=== PATIENT | female | born 1945 | race Caucasian/White ===

== ENCOUNTER 2017-07-21 12:53 | Observation (INO) | payer OTHER, MEDICARE ==
[~2017-07-21] VITALS: Ht 167.6 cm; Wt 77.9 kg
[~2017-07-21 12:53] MED LIST: AMLODIPINE BESY10 MG PO; ASPIR-LOW81 MG PO; B-121000 MC2 PO; DILTIA XT240 MG PO; FLONASE16 G1 BOTH NARES; GLUCOPHAGE500 MG PO; HYDROCHLOROTHIAZIDE; LISINOPRIL; LOSARTAN POTAS100 MG PO; MULTI-DAY VITA1 EACH PO; SIMVASTATIN; SIMVASTATIN40 MG PO; WATER PILL; XANAX0.5 MG PO; ZOLOFT; ZOLOFT50 MG PO
[2017-07-21 13:45] LABS: HEMATOCRIT 37.8 % (36.0-46.0); HEMOGLOBIN 13.1 G/DL (11.9-15.5); MCH 30.7 PG (29.0-34.0); MCHC 34.7 G/DL (30.0-36.0); MCV 88.5 FL (83-99); PLATELET COUNT 249 K/uL (156-360); RBC DIS.WIDTH-CV 12.6 % (11.8-14.6); RBC DIS.WIDTH-SD 40.4 % (39-53); RED BLOOD COUNT 4.27 M/uL (3.80-5.20); WHITE BLOOD COUNT 13.9 K/uL (4.1-10.2)
[2017-07-21 13:51] LABS: APPEARANCE CLEAR ((CLEAR)); BILIRUBIN NEGATIVE; BLOOD NEGATIVE; COLOR STRAW ((YELLOW)); GLUCOSE (STRIP) >=500; KETONES NEGATIVE; LEUKOCYTES TRACE; NITRITE NEGATIVE; PROTEIN (STRIP) NEGATIVE; SPECIFIC GRAVITY 1.008 (1.000-1.030); UROBILINOGEN 0.2 MG/DL (0.2-1.0)
[2017-07-21 13:52] LABS: BACTERIA NONE SEEN /HPF; EPITHELIAL CELLS RARE /HPF; MUCUS TRACE /LPF; RED BLOOD CELLS 0-5 /HPF (0-5); WHITE BLOOD CELLS 0-5 /HPF (0-5)
[2017-07-21 13:53] LABS: CHLORIDE 101 mEq/L (99-109); POTASSIUM 4.1 mEq/L (3.7-5.4); SODIUM 137 mEq/L (136-147)
[2017-07-21 13:55] LABS: GLUCOSE 233 mg/dL (70-99)
[2017-07-21 13:59] LABS: CREATININE 0.9 mg/dL (0.6-1.3); GFR ESTIMATE (CALCULATED) > 59 mL/min/
[2017-07-21 14:00] LABS: UREA NITROGEN (BUN) 17 mg/dL (9-23)
[2017-07-21 16:32] LABS: ALBUMIN 4.1 g/dL (3.2-4.8)
[2017-07-21 16:35] LABS: TOTAL PROTEIN 6.8 g/dL (6.4-8.3)
[2017-07-21 16:36] LABS: TOTAL BILIRUBIN 0.6 mg/dL (0.0-1.0)
[2017-07-21 16:37] LABS: ALKALINE PHOSPHATASE 93 IU/L (3-129)
[2017-07-21 16:40] LABS: AST (GOT) 15 IU/L (2-34); DIRECT BILIRUBIN 0.2 mg/dL (0.0-0.3)
[2017-07-21 16:41] LABS: ALT (GPT) 16 IU/L (3-49)
[2017-07-21 16:59] LABS: TROP-I INTERPRETATION NEGATIVE; TROPONIN-I 0.01 ng/mL (0.0-0.30)
[2017-07-21 17:21] VITALS: BP 134/61
[2017-07-21 17:45] LABS: THYROTROPIN (TSH) 1.5 MIU/L (0.4-5.5)
[2017-07-21 18:30] LABS: C-REACTIVE PROTEIN 2.4 MG/L (0-10)
[2017-07-21 19:11] VITALS: BP 169/67
[2017-07-22 00:10] VITALS: BP 114/57
[2017-07-22 05:24] LABS: HEMATOCRIT 36.5 % (36.0-46.0); HEMOGLOBIN 12.2 G/DL (11.9-15.5); MCHC 33.4 G/DL (30.0-36.0); MCV 89.7 FL (83-99); PLATELET COUNT 266 K/uL (156-360); RBC DIS.WIDTH-CV 12.9 % (11.8-14.6); RBC DIS.WIDTH-SD 42.5 % (39-53); RED BLOOD COUNT 4.07 M/uL (3.80-5.20); WHITE BLOOD COUNT 7.6 K/uL (4.1-10.2)
[2017-07-22 05:54] LABS: CHLORIDE 105 MEQ/L (99-109); CREATININE 0.7 MG/DL (0.6-1.3); GFR ESTIMATE (CALCULATED) > 59 mL/min/; GLUCOSE 171 mg/dL (70-99); POTASSIUM 4.4 MEQ/L (3.7-5.4); SODIUM 139 MEQ/L (136-147); UREA NITROGEN (BUN) 13 mg/dL (9-23)
[2017-07-22 07:49] VITALS: BP 145/63
== END 2017-07-22 11:55 | disposition home or self-care (01) ==
LOC: EME 12:53 → EDOF 16:02 → ENRESERV 16:03 → 4SOUTH 16:57
PROVIDERS: Internal Medicine; Nurse Practitioner Family
DX: R65.10 Systemic inflammatory response syndrome (SIRS) of non-infectious origin without acute organ dysfunction (principal); E87.2 Acidosis; F17.200 Nicotine dependence, unspecified, uncomplicated; R60.0 Localized edema; R26.89 Other abnormalities of gait and mobility; R30.0 Dysuria; R39.15 Urgency of urination; D72.829 Elevated white blood cell count, unspecified; E11.51 Type 2 diabetes mellitus with diabetic peripheral angiopathy without gangrene; I10 Essential (primary) hypertension; F41.9 Anxiety disorder, unspecified; F32.9 Major depressive disorder, single episode, unspecified; E78.5 Hyperlipidemia, unspecified; Z95.820 Peripheral vascular angioplasty status with implants and grafts; Z79.82 Long term (current) use of aspirin; Z79.84 Long term (current) use of oral hypoglycemic drugs; Z88.0 Allergy status to penicillin; Z88.2 Allergy status to sulfonamides; Z90.710 Acquired absence of both cervix and uterus; Z82.49 Family history of ischemic heart disease and other diseases of the circulatory system; Z83.3 Family history of diabetes mellitus
CPT/HCPCS: 70450; 71046; 71275; 74177; 80048; 80076; 81003; 82607; 82948; 83605; 83880; 84443; 84484; 85027; 85651; 86140; 87040; 87077; 87086; 87186; 87502; 93971; 99281; 99285; G0378; J1644; J1815; J7030